=== PATIENT | male | born 1985 | race African-American/Black ===

== ENCOUNTER 2024-09-22 17:50 | Emergency (ER) | payer MEDICAID, OTHER ==
[~2024-09-22] VITALS: Ht 172.7 cm; Wt 60.0 kg
[2024-09-22 17:53] VITALS: BP 162/107; PULSE 93; RESP 18; TEMP 99.1; O2SAT 94
== END 2024-09-22 20:12 | disposition left against medical advice (07) ==
LOC: ER 18:03
DX: R07.9 Chest pain, unspecified (principal); F15.90 Other stimulant use, unspecified, uncomplicated; J45.909 Unspecified asthma, uncomplicated; F20.9 Schizophrenia, unspecified; Z53.21 Procedure and treatment not carried out due to patient leaving prior to being seen by health care provider
CPT/HCPCS: 93005